=== PATIENT | female | born 1995 | race Caucasian/White ===

== ENCOUNTER 2021-11-06 05:40 | Inpatient (IN) | payer OTHER, BC ==
--- NOTE | 2021-11-05 08:00 | P.HPOB ---
History of Present Illness H&P Date: 11/05/21 Chief Complaint: Induction of labor secondary to gestational diabetes This patient is a pleasant 25-year-old 1 para 0 female estimated date of confinement 11/12/2021 estimated gestational age 39 and one sevenths weeks gestation who is admitted to labor and delivery for induction of labor secondary to gestational diabetes. Patient's care has been complicated by the gestational diabetes but has been under good control without medications. Patient's been followed by Dr. Brewer. Patient did also have a placenta previa earlier in the however this resolved there was some suggestion of a small succinate lobe. Patient's care has otherwise been uncomplicated. Review of Systems Genitourinary: Reports Menstruation: Reports amenorrhea Past Medical History Additional Past Medical History / Comment(s): Gestational diabetes and hypercholesterolemia History of Any Multi-Drug Resistant Organisms: None Reported Past Surgical History: No Surgical Hx Reported Past Anesthesia/Blood Transfusion Reactions: No Reported Reaction Past Psychological History: No Psychological Hx Reported Past Alcohol Use History: None Reported Past Drug Use History: None Reported Medications and Allergies Allergies Allergy/AdvReac Type Severity Reaction Status Date / Time No Known Allergies Allergy Verified 11/05/21 07:57 Exam - OBG Physical Exam Abdomen: bowel sounds normal, no diffuse tenderness, no bruit present, no guarding noted, no hepatomegaly, no splenomegaly, no mass Vulva: both: normal Vagina: normal moisture, no discharge Cervix: no lesion (Cervix is 2 cm dilated), no discharge Uterus: enlarged (Fundal height 38 cm) Results labs show she is oh positive, rubella immune, RPR nonreactive, hepatitis B nonreactive, HIV is negative, Glucola was 150 with an abnormal 3 hour gtt., group B strep was negative, most recent ultrasound showed 5 lbs. 13 oz. 50th percentile. Assessment and Plan Assessment: This is a pleasant 25-year-old 1 para 0 female 39 and one sevenths weeks gestation admitted to labor and delivery for induction of labor secondary to gestational diabetes. Plan is Pitocin induction of labor per protocol and anticipate vaginal delivery. (1) 39 weeks gestation of Status: Acute Code(s): Z3A.39 - 39 WEEKS GESTATION OF SNOMED Code(s): 20534033 (2) Gestational diabetes Status: Acute Code(s): O24.419 - GESTATIONAL DIABETES MELLITUS IN , UNSP CONTROL SNOMED Code(s): 33803727
[2021-11-06 06:07] LABS: Glucose,Whole Blood 94 mg/dL (70-110)
[2021-11-06] MEDS ORDERED: TERBUTALINE 1 MG/ML VIAL SQ PRN (06:17)
[2021-11-06] MEDS ORDERED: LACTATED RINGERS 1,000 ML IV SCH (06:17)
[2021-11-06] MEDS ORDERED: LIDOCAINE 0.5% (PF) 5 MG/ML (50 ML SDV) SQ PRN (06:17)
[2021-11-06] MEDS ORDERED: OXYTOCIN 10 UNIT/ML 1 ML VIAL IM PRN (06:17)
[2021-11-06] MEDS ORDERED: METHYLERGONOVINE 0.2 MG/ML 1 ML AMP IM PRN (06:17)
[2021-11-06] MEDS ORDERED: OXYTOCIN 30 UNITS/500 ML NS 30 UNIT in SALINE 1 500ML.BAG IV SCH ×2 (06:17→21:00)
[2021-11-06] MEDS ORDERED: CARBOPROST TROMETHAMINE 250 MCG/ML 1 ML AMP IM PRN (06:17)
[2021-11-06 07:09] LABS: Basophils % (A) 0 %; Eosinophils # (A) 0.2 k/uL (0-0.7); Eosinophils % (A) 2 %; HGB 12.6 gm/dL (11.4-16.0); Lymphocytes # (A) 1.8 k/uL (1.0-4.8); Lymphocytes % (A) 17 %; MCH 31.1 pg (25.0-35.0); MCHC 34.1 g/dL (31.0-37.0); MCV 91.4 fL (80.0-100.0); Mean Platelet Volume 8.2; Monocytes # (A) 0.7 k/uL (0-1.0); Monocytes % (A) 7 %; Neutrophils # (A) 7.4 k/uL (1.3-7.7); Neutrophils % (A) 72 %; Platelet Count 291 k/uL (150-450); RBC 4.05 m/uL (3.80-5.40); RDW 12.4 % (11.5-15.5); WBC 10.2 k/uL (3.8-10.6)
[2021-11-06] MEDS ORDERED: fentaNYL (PF) 50 MCG/ML 5 ML AMP ONE (12:57)
[2021-11-06] MEDS ORDERED: SODIUM CHLORIDE 0.9% 100 ML BAG ONE (12:57)
[2021-11-06] MEDS ORDERED: ROPIVACAINE 5MG/ML 20ML VIAL ONE (12:57)
[2021-11-06 13:45] LABS: Glucose,Whole Blood 75 mg/dL (70-110)
--- NOTE | 2021-11-06 20:45 | P.PROBDLV ---
Vaginal Delivery Note - . Vaginal Delivery Note: Normal vaginal delivery viable male infant Apgars 8 and 9 delivery time is 20/22 hours. Please see dictated H&P for intimate details of this patient's admission. In brief summary this is a pleasant 25-year-old 1 para 0 female 39 and one sevenths weeks admitted to labor and delivery for induction of labor secondary to gestational diabetes. Patient is admitted she is 3 cm dilated is artificial rupture membranes for clear fluid. Patient's labor progresses throughout the day and she does get an epidural for pain control. Patient gets to complete pushes for approximately 1 hour and 20 minutes pushes the head to the perineum. Posterior perineum was supported with controlled delivery of infant's head over the intact perineum. Mouth and nares are bulb suctioned. There is no evidence of a nuchal cord. With gentle downward traction we then have deliver the anterior posterior shoulder and rest this infant's body. This is a vigorous viable male infant Apgars are 8 and 9 delivery time is 20/22 hours. After delivery of the the infant is late on the mother's abdomen. After the umbilical cord is done pulsating is doubly clamped and cut appears to be trivascular. The placenta is then spontaneously delivered intact. Inspection of perineum shows a first-degree laceration the right vaginal area and no perineal laceration. There is a small separation of the right labia. Right labia is reapproximated with a 4-0 Vicryl. Excellent reapproximation is noted. The vaginal lacerations. With 3-0 Vicryl again good reapproximation is noted. All counts are correct 3. There are no complications. and mother stable delivery room.
[2021-11-06] MEDS ORDERED: diphenhydrAMINE 50 MG/ML 1 ML VIAL IVP PRN (20:46)
[2021-11-06] MEDS ORDERED: BENZOCAINE/MENTHOL SPRAY 1 GM/SPRAY AEROSOL TOPICAL PRN (20:46)
[2021-11-06] MEDS ORDERED: HYDROCORTISONE 2.5% RECTAL CREAM 30 GM TUBE RECTAL PRN (20:46)
[2021-11-06] MEDS ORDERED: bisacodyL 10 MG SUPP RECTAL PRN (20:46)
[2021-11-06] MEDS ORDERED: LANOLIN CREAM 5 GM TUBE TOPICAL PRN (20:46)
[2021-11-06] MEDS ORDERED: SIMETHICONE 80 MG CHEWABLE PO PRN (20:46)
[2021-11-06] MEDS ORDERED: diphenhydrAMINE 25 MG CAP PO PRN (20:46)
[2021-11-06] MEDS ORDERED: ZOLPIDEM 5 MG TAB PO PRN (20:46)
[2021-11-06] MEDS: IBUPROFEN 600 MG TAB PO PRN (23:16)
[2021-11-07] MEDS: ACETAMINOPHEN TAB 325 MG TAB PO PRN ×4 (02:19→23:29)
[2021-11-07 06:44] LABS: Basophils % (A) 0 %; Eosinophils % (A) 0 %; HCT 33.3 % (34.0-46.0); HGB 11.7 gm/dL (11.4-16.0); Lymphocytes # (A) 1.3 k/uL (1.0-4.8); Lymphocytes % (A) 7 %; MCH 32.5 pg (25.0-35.0); MCHC 35.2 g/dL (31.0-37.0); MCV 92.3 fL (80.0-100.0); Mean Platelet Volume 8.2; Monocytes # (A) 0.7 k/uL (0-1.0); Monocytes % (A) 4 %; Neutrophils # (A) 15.1 k/uL (1.3-7.7); Neutrophils % (A) 87 %; Platelet Count 229 k/uL (150-450); RDW 12.9 % (11.5-15.5); WBC 17.2 k/uL (3.8-10.6)
--- NOTE | 2021-11-07 07:41 | P.PNOBGVD ---
Subjective - Subjective Patient reports: Reports appetite normal, Reports voiding normally, Reports pain well controlled, Reports ambulating normally : doing well Objective - Latest Vital Signs Latest vital signs: Vital Signs Temp Pulse Resp BP Pulse Ox 11/07/21 04:00 98.3 F 91 16 121/75 11/06/21 22:46 99.1 F 77 16 131/72 11/06/21 22:16 94 16 127/62 99 11/06/21 21:46 99.7 F H 93 16 155/76 11/06/21 21:31 101.3 F H 107 H 16 160/77 98 11/06/21 21:16 98.7 F 115 H 16 118/97 100 11/06/21 21:01 86 16 116/93 11/06/21 20:46 98.0 F 101 H 16 114/78 100 Intake and Output 11/06/21 11/07/21 11/07/21 22:59 06:59 14:59 Output Total 550 150 Balance -550 -150 Output: Urine 400 Estimated Blood Loss 150 Output, Quantitative 150 Blood Loss Other: # Voids 1 - Exam Lungs: bilateral: normal Chest: Normal S1, Normal S2 Extremities: Present: normal Abdomen: Present: normal appearance, soft Uterus: Present: normal, firm - Labs Labs: Abnormal Lab Results - Last 24 Hours (Table) 11/07/21 Range/Units 06:16 WBC 17.2 H (3.8-10.6) k/uL RBC 3.60 L (3.80-5.40) m/uL Hct 33.3 L (34.0-46.0) % Neutrophils # 15.1 H (1.3-7.7) k/uL Assessment and Plan Assessment: day #1. Patient is resting without complaints. Patient did have a temperature right after delivery of 101 however this is defervesced and she is now afebrile. CBC shows her hemoglobin is good her white count is 17.2 which is most likely from delivery but will repeat this tomorrow. Plan today is to continue routine care. We'll check a CBC in the morning most likely discharge home tomorrow. (1) 39 weeks gestation of Current Visit: No Status: Acute Code(s): Z3A.39 - 39 WEEKS GESTATION OF SNOMED Code(s): 55530393 (2) Gestational diabetes Current Visit: No Status: Acute Code(s): O24.419 - GESTATIONAL DIABETES MELLITUS IN , UNSP CONTROL SNOMED Code(s): 85590995
[2021-11-07] MEDS: IBUPROFEN 600 MG TAB PO PRN ×3 (08:05→20:11)
[2021-11-07] MEDS: SENNOSIDES-DOCUSATE SODIUM 1 EACH TAB PO SCH ×2 (08:05→20:11)
[2021-11-08] MEDS: IBUPROFEN 600 MG TAB PO PRN ×2 (02:35→15:19)
--- NOTE | 2021-11-08 06:40 | P.PNOBGVD ---
Subjective - Subjective Patient reports: Reports appetite normal, Reports voiding normally, Reports pain well controlled, Reports ambulating normally : doing well Objective - Latest Vital Signs Latest vital signs: Vital Signs Temp Pulse Resp BP Pulse Ox 11/08/21 00:00 98.2 F 69 17 114/75 99 11/07/21 20:00 98.1 F 82 18 115/73 99 11/07/21 16:00 98.5 F 88 16 123/78 98 11/07/21 08:28 98.2 F 87 16 112/75 Intake and Output 11/07/21 11/07/21 11/08/21 14:59 22:59 06:59 Other: # Voids 1 2 2 - Exam Lungs: bilateral: normal Chest: Normal S1, Normal S2 Extremities: Present: normal Abdomen: Present: normal appearance, soft Uterus: Present: normal, firm - Labs Labs: Abnormal Lab Results - Last 24 Hours (Table) 11/07/21 Range/Units 06:16 WBC 17.2 H (3.8-10.6) k/uL RBC 3.60 L (3.80-5.40) m/uL Hct 33.3 L (34.0-46.0) % Neutrophils # 15.1 H (1.3-7.7) k/uL Assessment and Plan Assessment: day #2. Patient is resting without complaints wishes to go home. Vital signs are stable she has remained afebrile. CBC is pending at time of this dictation. Uterus is firm nontender she's having normal lochia. My impression is a normal course. Plan today is to check CBC, continue routine care, discharge home later today. (1) 39 weeks gestation of Current Visit: No Status: Acute Code(s): Z3A.39 - 39 WEEKS GESTATION OF SNOMED Code(s): 06456287 (2) Gestational diabetes Current Visit: No Status: Acute Code(s): O24.419 - GESTATIONAL DIABETES MELLITUS IN , UNSP CONTROL SNOMED Code(s): 98164083
--- NOTE | 2021-11-08 06:49 | P.DS ---
Providers Date of admission: 11/06/21 05:40 Expected date of discharge: 11/08/21 Attending physician: Satya Jiang Primary care physician: Stated None - Discharge Diagnosis(es) (1) 39 weeks gestation of Current Visit: No Status: Acute (2) Gestational diabetes Current Visit: No Status: Acute Hospital Course: Please see dictated H&P for intimate details of this patient's admission. Brief summary is a pleasant 25-year-old 1 para 0 female 39 and one sevenths weeks gestation admitted to labor and delivery for induction of labor secondary to gestational diabetes. Patient is admitted she was on have a vaginal delivery viable male . Please see dictated delivery note. She did develop a temperature immediate however this defervesced and there is no evidence of infection. On day #2 she is felt to be stable for discharge home follow up with me in 6 weeks. Procedures: Induction of labor and normal vaginal delivery Patient Condition at Discharge: Good Plan - Discharge Summary New Discharge Prescriptions: New Ibuprofen [Motrin] 600 mg PO Q6HR PRN #30 tab PRN Reason: Mild Pain (Scale 1 To 3) Discharge Medication List Ibuprofen [Motrin] 600 mg PO Q6HR PRN #30 tab 11/08/21 [Rx] Follow up Appointment(s)/Referral(s): Satya Jiang MD [STAFF PHYSICIAN] - 12/22/21 3:00 pm Patient Instructions/Handouts: Vaginal Delivery (DC) Activity/Diet/Wound Care/Special Instructions: No intercourse or anything per vagina for 6 weeks. Please call if any fever, chills, excessive vaginal bleeding, and/or abdominal pain. Discharge Disposition: HOME SELF-CARE
[2021-11-08 06:52] LABS: Basophils % (A) 0 %; Eosinophils # (A) 0.2 k/uL (0-0.7); Eosinophils % (A) 2 %; HGB 11.6 gm/dL (11.4-16.0); Lymphocytes # (A) 1.7 k/uL (1.0-4.8); Lymphocytes % (A) 15 %; MCHC 35.2 g/dL (31.0-37.0); MCV 93.7 fL (80.0-100.0); Mean Platelet Volume 7.6; Monocytes # (A) 0.5 k/uL (0-1.0); Monocytes % (A) 4 %; Neutrophils # (A) 9.2 k/uL (1.3-7.7); Neutrophils % (A) 78 %; Platelet Count 245 k/uL (150-450); RBC 3.52 m/uL (3.80-5.40); WBC 11.8 k/uL (3.8-10.6)
[2021-11-08] MEDS: ACETAMINOPHEN TAB 325 MG TAB PO PRN (07:42)
[2021-11-08 09:15] VITALS: BP 112/74; PULSE 85; RESP 16; TEMP 98
== END 2021-11-08 15:45 | disposition home or self-care (01) | DRG 806 ==
LOC: 4FBP 05:40
PROVIDERS: ADMIT Obstetrics & Gynecology; ATTEND Obstetrics & Gynecology
PROC: 3E0R3NZ Introduction of Analgesics, Hypnotics, Sedatives into Spinal Canal, Percutaneous Approach (ICD-10-PCS; principal; 2021-11-06)
PROC: 3E033VJ Introduction of Other Hormone into Peripheral Vein, Percutaneous Approach (ICD-10-PCS; principal; 2021-11-06)
PROC: 10907ZC Drainage of Amniotic Fluid, Therapeutic from Products of Conception, Via Natural or Artificial Opening (ICD-10-PCS; principal; 2021-11-06)
PROC: 00HU33Z Insertion of Infusion Device into Spinal Canal, Percutaneous Approach (ICD-10-PCS; principal; 2021-11-06)
PROC: 0HQ9XZZ Repair Perineum Skin, External Approach (ICD-10-PCS; principal; 2021-11-06)
PROC: 10E0XZZ Delivery of Products of Conception, External Approach (ICD-10-PCS; principal; 2021-11-06)
DX: O24.420 Gestational diabetes mellitus in childbirth, diet controlled (principal); O86.4 Pyrexia of unknown origin following delivery; O70.0 First degree perineal laceration during delivery; O99.284 Endocrine, nutritional and metabolic diseases complicating childbirth; E78.00 Pure hypercholesterolemia, unspecified; Z28.310 Unvaccinated for COVID-19; Z3A.39 39 weeks gestation of pregnancy; Z37.0 Single live birth
CPT/HCPCS: 85025; 86850; 86900; 86901

== ENCOUNTER 2023-04-06 11:45 | Emergency (ER) | payer BC, OTHER ==
[2023-04-06 12:06] VITALS: BP 121/53; PULSE 77; RESP 16; TEMP 98.6
--- NOTE | 2023-04-06 12:11 | ED ---
Nausea/Vomiting/Diarrhea HPI - General Chief complaint: Nausea/Vomiting/Diarrhea Stated complaint: Vomiting, 7 wks Time Seen by Provider: 04/06/23 12:08 Source: patient, RN notes reviewed Mode of arrival: ambulatory Limitations: no limitations - History of Present Illness Initial comments: This is a 27 year old female who presents to the emergency department for nausea and vomiting in . She is about 7 weeks and she is . She had nausea and vomiting in her first , however it was not this severe. She tried multiple [id number] remedies which were ineffective, but opted to avoid any prescription nausea medication at that time. Denies any pelvic pain or vaginal bleeding/discharge. She is essentially unable to keep anything down at this point and states that she is starting to feel very dizzy as a res ult. She is still trying to become established with an [employer]. MD complaint: nausea, vomiting - Related Data Previous Rx's Medication Instructions Recorded Ibuprofen [Motrin] 600 mg PO Q6HR PRN #30 tab 11/08/21 Metoclopramide [Reglan] 10 mg PO Q6H PRN #30 tab 04/06/23 Allergies Allergy/AdvReac Type Severity Reaction Status Date / Time sulfamethoxazole Allergy Nausea & Verified 04/06/23 11:50 [From Bactrim] Vomiting trimethoprim [From Bactrim] Allergy Nausea & Verified 04/06/23 11:50 Vomiting Review of Systems ROS Statement: Those systems with pertinent positive or pertinent negative responses have been documented in the HPI. ROS Other: All systems not noted in ROS Statement are negative. Past Medical History Past Medical History: No Reported History Additional Past Medical History / Comment(s): Gestational diabetes and borderlin e hypercholesterolemia History of Any Multi-Drug Resistant Organisms: None Reported Past Surgical History: Tonsillectomy Past Anesthesia/Blood Transfusion Reactions: No Reported Reaction Past Psychological History: No Psychological Hx Reported Smoking Status: Never smoker Past Alcohol Use History: None Reported Past Drug Use History: None Reported - Past Family History Mother Family Medical History: No Reported History General Exam - General Exam Comments Initial Comments: Visual Physical Exam Vital signs reviewed General: Well-appearing, nontoxic, no acute distress. Head: Normocephalic, atraumatic Eyes: PERRLA, EOMI ENT: Airway patent Chest: Nonlabored breathing Skin: No visual rash, normal skin tone Neuro: Alert and oriented 3 Musculoskeletal: No gross abnormalities Limitations: no limitations General appearance: alert, in no apparent distress Head exam: Present: atraumatic, normocephalic, normal inspection Respiratory exam: Present: normal lung sounds bilaterally. Absent: respiratory distress, wheezes, rales, rhonchi, stridor Cardiovascular Exam: Present: regular rate, normal rhythm, normal heart sounds. Absent: systolic murmur, diastolic murmur, rubs, gallop, clicks Neurological exam: Present: alert, oriented X3, CN II-XII intact Psychiatric exam: Present: normal affect, normal mood Skin exam: Present: warm, dry, intact, normal color. Absent: rash Course Vital Signs 04/06/23 11:48 Temperature 98.6 F Pulse Rate 77 Respiratory 16 Rate Blood Pressure 121/53 O2 Sat by Pulse 99 Oximetry Medical Decision Making - Medical Decision Making This is a 27 year old female who presents to the emergency department for nausea and vomiting in . Was pt. sent in by a medical professional or institution? @ -No Did you speak to anyone other than the patient for history? @ -No Did you review nursing and triage notes? @ -Yes, and I agree, it is accurate with regards to the patient's symptoms. Were old charts reviewed? @ -No Differential Diagnosis? @ -Differential Nausea and Vomiting: Gastroenteritis, cholecystitis, appendicitis, pancreatitis, migraine, benign positional vertigo, food borne illness, pyelonephritis, irritable bowel syn drome, influenza, Covid, GERD, incarcerated hernia, intestinal obstruction, this is not meant to be an all-inclusive list. EKG interpreted by me (3pts min.)? @ -Not obtained X-rays interpreted by me (1pt min.)? @ -Not obtained CT interpreted by me (1pt min.)? @ -Not obtained U/S interpreted by me (1pt. min.)? @ -Not obtained What testing was considered but not performed? (CT, X-rays, U/S, labs)? Why? @ -None What meds were considered but not given? Why? @ -None Did you discuss the management of the patient with other professionals? @ -No Did you reconcile home meds? @ -No Was smoking cessation discussed for >3mins.? @ -No Was critical care preformed (if so, how long)? @ -No Were there social determinants of health that impacted care today? How? (Homelessness, low income, unemployed, alcoholism, drug addiction, transportation, low edu. Level, literacy, decrease access to med. care, halfway, rehab)? @ -No Was there de-escalation of care discussed even if they declined? (Discuss DNR or withdrawal of care, Hospice)? @ -No What co-morbidities impacted this encounter? (DM, HTN, Smoking, COPD, CAD, C ancer, CVA, Hep., AIDS, mental health diagnosis, sleep apnea, morbid obesity)? @ - Was patient admitted / discharged? @ -Discharged. Lab work obtained and found to be unremarkable. Urinalysis negative for signs of infection. COVID, influenza, and RSV testing were negative. Patient treated with IV fluids, vitamin B6, and Reglan, and had significant improvement in symptoms. She was tolerating oral intake afterwards and felt stable for discharge home. Discussed that she can continue trying to use the over the counter vitamin B6 with unisom if she would like, however it has not been effective for her recently, and we will thus proceed with prescription management. Rx for Reglan provided with dosing instructions reviewed. She is advised to slowly advance her diet as tolerated and remain well hydrated. Also advised she continue trying to become established with an [employer]. Undiagnosed new problem with uncertain prognosis? @ -None Drug Therapy requiring intensive monitoring for toxicity (Heparin, Nitro, Insulin, Cardizem)? @ -None Were any procedures done? @ -None Diagnosis/symptom? @ -Nausea and vomiting in Acute, or Chronic, or Acute on Chronic? @ -Acute Uncomplicated (without systemic symptoms) or Complicated (systemic symptoms)? @ -Uncomplicated Side effects of treatment? @ -None Exacerbation, Progression, or Severe Exacerbation] @ -Not applicable Poses a threat to life or bodily function? @ -Not at this time Return precautions reviewed in depth, the patient is instructed to return to the emergency department with any new, worsening, or concerning symptoms. Patient verbalized understanding. This case was discussed in detail with the attending ED physician, Dr. Gallegos. Presentation, findings, and treatment plan discussed in detail as well. - Lab Data Result diagrams: 04/06/23 13:11 04/06/23 13:11 Lab Results 01/03/24 01/03/24 01/03/24 Range/Units 11:52 13:11 13:11 WBC 8.9 (3.8-10.6) k/uL RBC 4.95 (3.80-5.40) m/uL Hgb 14.8 (11.4-16.0) gm/dL Hct 42.3 (34.0-46.0) % MCV 85.4 (80.0-100.0) fL MCH 30.0 (25.0-35.0) pg MCHC 35.1 (31.0-37.0) g/dL RDW 11.6 (11.5-15.5) % Plt Count 265 (150-450) k/uL MPV 6.6 Neutrophils % 75 % Lymphocytes % 19 % Monocytes % 4 % Eosinophils % 1 % Basophils % 0 % Neutrophils # 6.6 (1.3-7.7) k/uL Lymphocytes # 1.7 (1.0-4.8) k/uL Monocytes # 0.3 (0-1.0) k/uL Eosinophils # 0.1 (0-0.7) k/uL Basophils # 0.0 (0-0.2) k/uL Sodium 135 L (137-145) mmol/L Potassium 4.2 (3.5-5.1) mmol/L Chloride 102 (98-107) mmol/L Carbon Dioxide 23 (22-30) mmol/L Anion Gap 10 mmol/L BUN 9 (7-17) mg/dL Creatinine 0.61 (0.52-1.04) mg/dL Est GFR (CKD-EPI)AfAm >90 (>60 ml/min/1.73 sqM) Est GFR (CKD-EPI)NonAf >90 (>60 ml/min/1.73 sqM) Glucose 88 (74-99) mg/dL Calcium 9.5 (8.4-10.2) mg/dL Total Bilirubin 0.7 (0.2-1.3) mg/dL AST 28 (14-36) U/L ALT 20 (4-34) U/L Alkaline Phosphatase 60 (38-126) U/L Total Protein 7.4 (6.3-8.2) g/dL Albumin 4.5 (3.5-5.0) g/dL HCG, Quant 115692.0 mIU/mL Urine Color Urine Appearance (Clear) Urine pH (5.0-8.0) Ur Specific [place] (1.001-1.035) Urine Protein (Negative) Urine Glucose (UA) (Negative) Urine Ketones (Negative) Urine Blood (Negative) Urine Nitrite (Negative) Urine Bilirubin (Negative) Urine Urobilinogen (<2.0) mg/dL Ur Leukocyte Esterase (Negative) Urine RBC (0-5) /hpf Urine WBC (0-5) /hpf Ur Squamous Epith Cells (0-4) /hpf Urine Mucus (None) /hpf Influenza Type A (PCR) Not Detected (Not Detectd) Influenza Type B (PCR) Not Detected (Not Detectd) RSV (PCR) Not Detected (Not Detectd) SARS-CoV-2 (PCR) Not Detected (Not Detectd) 04/06/23 Range/Units 15:06 WBC (3.8-10.6) k/uL RBC (3.80-5.40) m/uL Hgb (11.4-16.0) gm/dL Hct (34.0-46.0) % MCV (80.0-100.0) fL MCH (25.0-35.0) pg MCHC (31.0-37.0) g/dL RDW (11.5-15.5) % Plt Count (150-450) k/uL MPV Neutrophils % % Lymphocytes % % Monocytes % % Eosinophils % % Basophils % % Neutrophils # (1.3-7.7) k/uL Lymphocytes # (1.0-4.8) k/uL Monocytes # (0-1.0) k/uL Eosinophils # (0-0.7) k/uL Basophils # (0-0.2) k/uL Sodium (137-145) mmol/L Potassium (3.5-5.1) mmol/L Chloride (98-107) mmol/L Carbon Dioxide (22-30) mmol/L Anion Gap mmol/L BUN (7-17) mg/dL Creatinine (0.52-1.04) mg/dL Est GFR (CKD-EPI)AfAm (>60 ml/min/1.73 sqM) Est GFR (CKD-EPI)NonAf (>60 ml/min/1.73 sqM) Glucose (74-99) mg/dL Calcium (8.4-10.2) mg/dL Total Bilirubin (0.2-1.3) mg/dL AST (14-36) U/L ALT (4-34) U/L Alkaline Phosphatase (38-126) U/L Total Protein (6.3-8.2) g/dL Albumin (3.5-5.0) g/dL HCG, Quant mIU/mL Urine Color Yellow Urine Appearance Clear (Clear) Urine pH 5.5 (5.0-8.0) Ur Specific [place] 1.027 (1.001-1.035) Urine Protein Trace H (Negative) Urine Glucose (UA) Negative (Negative) Urine Ketones Negative (Negative) Urine Blood Negative (Negative) Urine Nitrite Negative (Negative) Urine Bilirubin Negative (Negative) Urine Urobilinogen <2.0 (<2.0) mg/dL Ur Leukocyte Esterase Trace H (Negative) Urine RBC 1 (0-5) /hpf Urine WBC 2 (0-5) /hpf Ur Squamous Epith Cells 8 H (0-4) /hpf Urine Mucus Many H (None) /hpf Influenza Type A (PCR) (Not Detectd) Influenza Type B (PCR) (Not Detectd) RSV (PCR) (Not Detectd) SARS-CoV-2 (PCR) (Not Detectd) Disposition Clinical Impression: Nausea and vomiting during Disposition: HOME SELF-CARE Instructions (If sedation given, give patient instructions): Nausea and Vomiting in (ED) Additional Instructions: Return to the emergency department with any new, worsening, or concerning symptoms. You can take the Reglan up to every 6 hours as needed for nausea and vomiting. Slowly advance your diet as tolerated and remain well hydrated. Continue trying to become established with an [employer]. Prescriptions: Metoclopramide [Reglan] 10 mg PO Q6H PRN #30 tab PRN Reason: Nausea And Vomiting Is patient prescribed a controlled substance at d/c from ED?: No Referrals: Hill Cannon DO [Primary Care Provider] - 1-2 days
[2023-04-06 13:19] LABS: Basophils % (A) 0 %; Eosinophils # (A) 0.1 k/uL (0-0.7); Eosinophils % (A) 1 %; HCT 42.3 % (34.0-46.0); HGB 14.8 gm/dL (11.4-16.0); Lymphocytes # (A) 1.7 k/uL (1.0-4.8); Lymphocytes % (A) 19 %; MCHC 35.1 g/dL (31.0-37.0); MCV 85.4 fL (80.0-100.0); Mean Platelet Volume 6.6; Monocytes # (A) 0.3 k/uL (0-1.0); Monocytes % (A) 4 %; Neutrophils # (A) 6.6 k/uL (1.3-7.7); Neutrophils % (A) 75 %; Platelet Count 265 k/uL (150-450); RBC 4.95 m/uL (3.80-5.40); RDW 11.6 % (11.5-15.5); WBC 8.9 k/uL (3.8-10.6)
[2023-04-06 13:33] LABS: ALT 20 U/L (4-34); AST 28 U/L (14-36); African American GFR (CKD) >90 (>60 ml/min/1.73 sqM); Albumin 4.5 g/dL (3.5-5.0); Alkaline Phosphatase 60 U/L (38-126); Anion Gap 10 mmol/L; Blood Urea Nitrogen 9 mg/dL (7-17); Calcium 9.5 mg/dL (8.4-10.2); Carbon Dioxide 23 mmol/L (22-30); Chloride 102 mmol/L (98-107); Glucose 88 mg/dL (74-99); Non-African American GFR(CKD) >90 (>60 ml/min/1.73 sqM); Potassium 4.2 mmol/L (3.5-5.1); Sodium 135 mmol/L (137-145); Total Bilirubin 0.7 mg/dL (0.2-1.3); Total Protein 7.4 g/dL (6.3-8.2)
[2023-04-06] MEDS ORDERED: PYRIDOXINE 100 MG/ML 1 ML VIAL IVP STA (15:04)
[2023-04-06] MEDS ORDERED: SODIUM CHLORIDE 0.9% 2,000 ML IV STA (15:04)
[2023-04-06] MEDS ORDERED: METOCLOPRAMIDE 5 MG/ML 2 ML VIAL IVP STA (15:04)
[2023-04-06 15:34] LABS: Appearance,Urine Clear (Clear); Bilirubin,Urine Negative (Negative); Blood,Urine Negative (Negative); Color,Urine Yellow; Glucose,Urine (UA) Negative (Negative); Ketones,Urine Negative (Negative); Leukocyte Esterase,Urine Trace (Negative); Mucus,Urine Many /hpf; Nitrite,Urine Negative (Negative); PH, Urine 5.5 (5.0-8.0); Protein,Urine Trace (Negative); RBC,Urine 1 /hpf (0-5); Specific Gravity,Urine 1.027 (1.001-1.035); Squamous Epithelial Cell,Urine 8 /hpf (0-4); Urobilinogen,Urine <2.0 mg/dL (<2.0); WBC,Urine 2 /hpf (0-5)
== END 2023-04-06 16:53 | disposition home or self-care (01) ==
LOC: EC 11:45
DX: O21.9 Vomiting of pregnancy, unspecified (principal); Z88.2 Allergy status to sulfonamides; Z88.1 Allergy status to other antibiotic agents; Z20.822 Contact with and (suspected) exposure to COVID-19; Z3A.01 Less than 8 weeks gestation of pregnancy
CPT/HCPCS: 36415; 80053; 85025; 81001; 84702; 87636; 99284; 96374; 96375; 96361 ×2; J3415; J2765

== ENCOUNTER 2023-10-21 19:12 | Outpatient (CLI) | payer BC, OTHER ==
[2023-10-21 19:57] VITALS: BP 122/76; PULSE 81; RESP 18; TEMP 96.7
--- NOTE | 2023-10-22 22:19 | P.MSEPDOC ---
Presenting Problems - Arrival Data Date of Arrival on Unit: 10/21/23 Time of Arrival on Unit: 19:12 Mode of Transport: Ambulatory - Complaint OB-Reason for Admission/Chief Complaint: Pain Comment: Presents with c/o increased bilat lower extremety swelling over night, r sided inermitent lower quadrant pain 6/10 since last night. Medical History - Information : 2 Para: 1 Term: 1 : 0 Abortions: Spontaneous or Elective: 0 Number of Living Children: 1 - Gestational Age Gestational Age by JOSE (wks/days): 35 Weeks and 1 Days Review of Systems - Review of Systems Constitutional: No problems Breast: No problems ENT: No problems Cardiovascular: No problems Respiratory: No problems Gastrointestinal: No problems Genitourinary: No problems Musculoskeletal: No problems Neurological: No problems Skin: No problems Vital Signs - Temperature Temperature: 96.7 F Temperature Source: Temporal Artery Scan - Pulse Pulse Oximetery Pulse Rate: 81 Pulse Assessment Method: Pulse Oximetry - Respirations Respiratory Rate: 18 Oxygen Delivery Method: Room Air O2 Sat by Pulse Oximetry: 99 - Blood Pressure Right Arm Blood Pressure: 122/76 Blood Pressure Mean: 91 Blood Pressure Source: Automatic Cuff Medical Screen Scoring - Assessment - Baby A Baseline FHR: 140 Heart Rate - NICHD Category: Category I (Normal) NST: Reactive Physician Notification - Physician Notified Physician Notified Date: 10/21/23 Physician Notified Time: 19:39 Physician: Yvonne Brown New Order Received: Yes - Notification Comment Comment: Called Dr. Brown. Pt of Dr. Dent. 35 weeks 1 day. Presents with c/o increased bilat lower extremety swelling over night, r sided inermitent lower quadrant pain 6/10 since last night. Cat 1 tones, reactiv NST, no cx on monitor. Pt denies n/v, ARREOLA, blurry vision, or epigastric pain. Lung sounds clear. Pt has nonpitting lower extremity swelling on assesment. BP 122/76. Orders to d/c and encourage increased hydration and putting feet up. Maternal Triage Index - Maternal Triage Index Presenting for scheduled procedure w/no complaint: No - Stat/Priority 1 Stat Priority 1: No - Urgent/Priority 2 Urgent Priority 2: No - Prompt/Priority 3 Prompt Priority 3: No - Non-Urgent/Priority 4 Non-Urgent Priority 4: Yes Criteria Met for Priority 4: Presents with c/o increased bilat lower extremety swelling over night, r sided inermitent lower quadrant pain 6/10 since last night. Disposition - Disposition OB Disposition: Discharge to home Discharge Date: 10/21/23 Discharge Time: 19:45 I agree with the RN Medical Screening Exam: Yes Case reviewed; plan agreed upon as documented in EMR&OBIX.: Yes Diagnosis: PAIN, UNSPECIFIED
== END 2023-10-21 19:45 | disposition home or self-care (01) ==
LOC: FBPOP 19:12
PROVIDERS: ATTEND Obstetrics & Gynecology
DX: O26.893 Other specified pregnancy related conditions, third trimester (principal); R10.31 Right lower quadrant pain; Z3A.35 35 weeks gestation of pregnancy; Z88.2 Allergy status to sulfonamides; Z88.1 Allergy status to other antibiotic agents
CPT/HCPCS: 59025; 99213

== ENCOUNTER 2023-11-18 15:07 | Outpatient (CLI) | payer OTHER | END 2023-11-18 16:41 | LOC: FBPOP 15:07 → 4FBP 11-21 00:55 → UNDOADMIN 11-21 00:55 → EDSTATUS 11-25 10:42 | PROVIDERS: ATTEND Obstetrics & Gynecology | CPT/HCPCS: 59025; 99213 ==

== ENCOUNTER 2023-11-21 00:55 | Inpatient (IN) | payer OTHER ==
[2023-11-21] MEDS ORDERED: ERYTHROMYCIN 5 MG/GM OPHTH OINT 1 GM TUBE ONE (01:17)
[2023-11-21] MEDS ORDERED: OXYTOCIN 30 UNITS/500 ML NS 500 ML IV ONE (01:17)
[2023-11-21] MEDS ORDERED: PHYTONADIONE 1 MG/0.5 ML SYRINGE ONE (01:17)
[2023-11-21] MEDS ORDERED: LIDOCAINE 0.5% (PF) 5 MG/ML (50 ML SDV) ONE (01:17)
[2023-11-21] MEDS ORDERED: IBUPROFEN 600 MG TAB PO ONE ×2 (15:11→23:52)
[2023-11-21] MEDS ORDERED: ACETAMINOPHEN TAB 325 MG TAB ONE (18:11)
[2023-11-22] MEDS ORDERED: IBUPROFEN 600 MG TAB PO ONE (07:35)
[2023-11-22] MEDS ORDERED: SENNOSIDES-DOCUSATE SODIUM 1 EACH TAB PO ONE (07:35)
[2023-11-22] MEDS ORDERED: ACETAMINOPHEN TAB 325 MG TAB ONE (13:08)
== END 2023-11-22 15:00 | disposition home or self-care (01) | DRG 807 ==
LOC: 4FBP 00:55
PROVIDERS: ADMIT Obstetrics & Gynecology; ATTEND Obstetrics & Gynecology
PROC: 10E0XZZ Delivery of Products of Conception, External Approach (ICD-10-PCS; principal; 2023-11-21)
DX: O99.824 Streptococcus B carrier state complicating childbirth (principal); O77.0 Labor and delivery complicated by meconium in amniotic fluid; O69.81X0 Labor and delivery complicated by cord around neck, without compression, not applicable or unspecified; Z88.2 Allergy status to sulfonamides; Z88.1 Allergy status to other antibiotic agents; Z3A.39 39 weeks gestation of pregnancy; Z37.0 Single live birth